=== PATIENT | female | born 1995 | race Caucasian/White ===

== ENCOUNTER 2024-05-14 11:40 | Emergency (ER) | payer MEDICAID, SELFPAY ==
[2024-05-14 11:41] VITALS: BP 149/86; PULSE 114; RESP 18; TEMP 36.6; O2SAT 99; BMI 41.3
--- NOTE | 2024-05-14 12:02 | RAD_ITS ---
PROCEDURE: HIP, UNI W/ PELVIS 2-3 VIEWS 05/14/2024 REASON FOR EXAM: INJURY, PAIN TECHNIQUE: Three views of the right hip were obtained. COMPARISON: None FINDINGS: Bones: No fracture or dislocation. Joints: Normal alignment. Joint spaces are preserved. No arthropathic features. Sclerosis and narrowing of the symphysis pubis. Soft tissues: Soft tissues are unremarkable. RAD/HIP, UNI W/ Pelvis 2-3 Views IMPRESSION: NO ACUTE FRACTURE OR DISLOCATION. If acute hip fracture is suspected after a fa ll or minor trauma and initial radiographs are negative then MRI of the pelvis and affected hip without IV contrast or CT of t he pelvis and hips without IV contrast is usually appropriate as the next imaging study. (ACR Appropriateness Criteria: Acute Hip Pain-Suspected Fracture 2018) Reading Location: [place] [id number]
--- NOTE | 2024-05-14 12:05 | EDS_ITS ---
HPI <MINNA Olivarez - Last Filed: 05/14/24 13:09> History of Present Illness Chief Complaint: Flank Pain Narrative Narrative: Patient presenting today due to right lower back pain she has had over the past 3 weeks. She reports a history of chronic low back pain that has been worse ever since she fell down several stairs at home after tripping on one of her kids toys. She reports the pain is worsened with certain movements. Additionally, she has had intermittent pain to her right hip/buttocks over the past 3 weeks that was worse this morning when she tried to get up out of bed. Over the past 6 days, she has had dysuria for which she is taking Azo for. She denies significant history of UTIs. She denies fevers, chills, abdominal pain, concerns for STDs, and abnormal vaginal discharge. She did have an episode of nausea and vomiting yesterday that has resolved. PFS <MINNA Olivarez - Last Filed: 05/14/24 13:09> [facility] Home Medications ?Medication ?Instructions ?Recorded ?Last Taken ?Type nitrofurantoin 100 mg PO Q12H 3 days #6 cap s 05/14/24 Unknown Rx monohydrate/macrocrystals 100 mg capsule (Macrobid) Allergy/AdvReac Type Severity Reaction Status Date / Time cephalexin (From Keflex) Allergy Severe Anaphylaxis Verified 05/14/24 11:41 codeine Allergy Severe Anaphylaxis Verified 05/14/24 11:41 Social History Smoking Status: Never smoker ROS <MINNA Olivarez - Last Filed: 05/14/24 13:09> ROS ED Constitutional Constitutional ED: Denies chills or fever(s) Cardiovascular Cardiovascular: Denies chest pain Respiratory/Chest Respiratory/Chest: Denies dyspnea Gastrointestinal Gastrointestinal: Denies abdominal pain, nausea or vomiting Genitourinary Genitourinary ED: Reports dysuria; Denies hematuria or urinary urgency Musculoskeletal Musculoskeletal: Reports arthralgias and back pain Integumentary Denies Abrasions or rash Neurologic Neurologic: Denies paresthesias EXAM <MINNA Olivarez - Last Filed: 05/14/24 13:09> Physical Exam Const Vital Signs: 05/14/24 11:41 05/14/24 12:48 05/14/24 12:51 Temperature 97.9 F 97.9 F Temperature Source Temporal Pulse Rate 114 H 92 Respiratory Rate 18 16 Blood Pressure 149/86 H 110/73 110/73 Blood Pressure Mean 107 85 85 Pulse Ox 99 99 99 Oxygen Delivery Method Room Air Positive well nourished, well developed and no apparent distress General Appearance ED: well developed HEENT Reports normocephalic and head/scalp atraumatic Mouth ED: Yes moist mucous membranes normal Eyes PERRL and EOMs intact bilaterally Neck full ROM and supple Chest Wall inspection of chest normal Resp normal respiratory effort and clear to auscultation bilaterally Cardio regular rate and regular rhythm GI soft to palpation, non-tender, non-distended and no masses Back/Spine no CVA tenderness, normal ROM and normal to inspection Back/Spine Narrative: Right lumbar paraspinal tenderness to palpation, no midline spinal tenderness Extremity normal to inspection and full ROM Extremity Narrative: Tenderness to the right glute, no tenderness to the right greater trochanter, full range of motion to the right hip. Negative logroll on the right. Right lower extremity neurovascularly intact. Neuro oriented x3, CN's II-XII intact bilaterally, moves all extremities, no focal motor deficits and no sensory deficits noted Sensorium / Orientation: awake and alert Psych mental status grossly normal and thought process normal Skin no rashes or lesions noted and no wounds <Dr. Alan Sauceda MD - Last Filed: 05/14/24 12:48> Physical Exam Const Vital Signs: 05/14/24 11:41 05/14/24 12:48 05/14/24 12:51 Temperature 97.9 F 97.9 F Temperature Source Temporal Pulse Rate 114 H 92 Respiratory Rate 18 16 Blood Pressure 149/86 H 110/73 110/73 Blood Pressure Mean 107 85 85 Pulse Ox 99 99 99 Oxygen Delivery Method Room Air MDM <MINNA Olivarez - Last Filed: 05/14/24 13:09> [facility] MDM Narrative Medical decision making narrative: Patient presenting today due to right lower back pain and intermittent right hip/gluteal pain she has had over the past 3 weeks after falling down several stairs after tripping on one of her kids toys. She has right paraspinal tenderness to palpation on exam, her exam is consistent with a muscular strain. She denies bowel/bladder incontinence, saddle paresthesia, history of IV drug use, urinary retention, fevers, chills. No cauda equina symptoms, low concern for spinal abscess. Right hip is not consistent with a septic joint, there is no overlying signs of infection. She does not have any tenderness to her right hip, her pain is more to the right glute. X-ray of the right hip obtained and is negative for fracture. Additionally, she reports urinary symptoms over the past 6 days. Her exam is not consistent with a kidney stone and she has no CVA tenderness on exam. UA obtained and is negative for UTI. Will place her on a short course of Macrobid to cover for possible urethritis. She has been taking Aleve with moderate relief of her gluteal/low back pain, I did offer analgesia here and she declined. She can continue this at home. Recommended she follow- up with her PCP and patient discharged home in stable condition. Lab Data Attestation: I reviewed the patient's lab results. Labs: Laboratory Results - last 24 hr 05/14/24 12:05 Urine Color Yellow Urine Clarity Sl. Cloudy Urine pH 6.0 Ur Specific [place] 1.015 Urine Protein 15 H Urine Glucose (UA) 1000 H Urine Ketones Negative Urine Occult Blood 10 H Urine Nitrite Negative Urine Bilirubin Negative Urine Urobilinogen Normal Ur Leukocyte Esterase 25 H Urine RBC 0 SEEN Urine WBC 0 SEEN Ur Squamous Epith Cells 0 SEEN Urine Bacteria 0 SEEN Urine Mucus 0 SEEN Urine Test Negative Radiography X-Ray: Read by ED Physician Diagnostic Testing: Clinical Impression(s) from Imaging Studies Hip/Pelvis X-Ray 05/14/24 12:02 IMPRESSION: NO ACUTE FRACTURE OR DISLOCATION. If acute hip fracture is suspected after a fall or minor trauma and initial radiographs are negative then MRI of the pelvis and affected hip without IV contrast or CT of the pelvis and hips without IV contrast is usually appropriate as the next imaging study. (ACR Appropriateness Criteria: Acute Hip Pain-Suspected Fracture 2018) Reading Location: [facility] <Dr. Alan Sauceda MD - Last Filed: 05/14/24 12:48> [facility] Lab Data Labs: Laboratory Results - last 24 hr 05/14/24 12:05 Urine Color Yellow Urine Clarity Sl. Cloudy Urine pH 6.0 Ur Specific [place] 1.015 Urine Protein 15 H Urine Glucose (UA) 1000 H Urine Ketones Negative Urine Occult Blood 10 H Urine Nitrite Negative Urine Bilirubin Negative Urine Urobilinogen Normal Ur Leukocyte Esterase 25 H Urine RBC 0 SEEN Urine WBC 0 SEEN Ur Squamous Epith Cells 0 SEEN Urine Bacteria 0 SEEN Urine Mucus 0 SEEN Urine Test Negative Radiography Diagnostic Testing: Clinical Impression(s) from Imaging Studies Hip/Pelvis X-Ray 05/14/24 12:02 IMPRESSION: NO ACUTE FRACTURE OR DISLOCATION. If acute hip fracture is suspected after a fall or minor trauma and initial radiographs are negative then MRI of the pelvis and affected hip without IV contrast or CT of the pelvis and hips without IV contrast is usually appropriate as the next imaging study. (ACR Appropriateness Criteria: Acute Hip Pain-Suspected Fracture 2018) Reading Location: [place] [id number] Treatment and Re-Evaluation Comments:: I have personally performed a face to face assessment of the patient and have reviewed the HARI Note. I performed a substantive portion of the visit including all aspects of the following. My palafox findings include: History is pain right buttock/hip without groin pain for the past 2-3 weeks since fall down some steps. Also for the last week, dysuria without hematuria or fevers, no better with Azo. Exam is able to stand walk without difficulty. Tenderness throughout the right buttock but not the midline spine or the hip joint when passively internally/externally rotating. Neurovascular intact distally. No tenderness in the femur. Medical Decison Making three-view x-ray series of the right hip on my interpretation normal, no pelvis, inferior pubic ramus, or hip joint fracture or effusion. Her urinalysis shows a trace of blood but no signs of infection. Working to treat her with a couple days of Macrobid for possible urethritis, advised her to follow-up, suspect inflammation/contusion in her buttock area, supportive care should self resolve with time if not follow-up. Other additions or changes: [None] Discharge Plan Triage Chief Complaint: Flank Pain Other Complaint: Lower Extremity Injury ED Midlevel Provider: Vale Doe ED Provider: Alan Sauceda Dx/Rx/DC Orders Clinical Impression: Urethritis, Low back strain, Pain in right buttock Instructions: ED Back Sprain/Strain, ED Urethritis Infec Vs Inflam ... Prescriptions: New nitrofurantoin monohyd/m-cryst [Macrobid] 100 mg capsule 100 mg PO Q12H 3 Days Qty: 6 0RF Rx Instructions: must administer with a meal/food Primary Care Provider: Judi New NP Referrals: Judi New NP, [employer] [facility] [Primary Care Provider] - 5-7 Days Activity Restrictions/Additional Instructions: Follow-up with your PCP and return for any worsening symptoms. Print Language: Dominican Disposition Disposition: Home, Self Care Discharge Date/Time: 05/14/24 12:54
[2024-05-14 12:24] LABS: Bacteria 0 SEEN /hpf (None Seen); Mucous, Urine 0 SEEN /hpf (<or=2+)
[2024-05-14 12:30] LABS: Color, Urine Yellow (Yellow); Glucose, Dipstick 1000 mg/dl (Normal); Ketone-Dipstick Negative (Negative); Leukocyte Esterase-Dipstick 25 /ul (Negative); Nitrite-Dipstick Negative (Negative); Occult Blood-Urine 10 /ul (Negative); Protein-Dipstick 15 mg/dl (Negative); Specific Gravity, Urine 1.015 (1.002-1.030); Urine Bilirubin Dipstick Negative (Negative); Urine Clarity Sl. Cloudy (Clear); Urine Urobilinogen Normal (Normal)
[2024-05-14 12:37] LABS: Internal QC Validated? YES +Cl - CLEAR BKGD; Pregnancy, Urine Negative Negative; Record Kit Lot#,Urine Preg 899023
[2024-05-14 12:48] VITALS: BP 110/73; O2SAT 99
[2024-05-14 12:51] VITALS: BP 110/73; PULSE 92; RESP 16; TEMP 36.6; O2SAT 99
[2024-05-14 13:07] LABS: White Blood Cells 10-25 SEEN /hpf (0-5)
[2024-05-14 13:08] LABS: Red Blood Cells-Urine 0-5 SEEN /hpf (0-5); Squamous Epithelial Cells - UA 0-5 SEEN /hpf (5-10)
== END 2024-05-14 12:54 | disposition home or self-care (01) ==
PROVIDERS: Physician Assistant; Emergency Provider Emergency Medicine; PCP Registered Nurse; Visit Provider Emergency Medicine
DX: N34.2 Other urethritis (principal); S39.012A Strain of muscle, fascia and tendon of lower back, initial encounter; M25.551 Pain in right hip; R30.0 Dysuria; W10.9XXA Fall (on) (from) unspecified stairs and steps, initial encounter
CPT/HCPCS: 73502; 81001; 81025; 99283